=== PATIENT | male | born 1960 | race Hispanic/Latino ===

== ENCOUNTER → 2024-10-09 | Outpatient (CLI) | payer MEDICARE ==
[2024-10-09 13:18] LABS: CREATININE 1.2 mg/dL (0.5-1.3)
== END | disposition home or self-care (01) ==
LOC: LAB 12:11
PROVIDERS: ATTEND Otolaryngology Plastic Surgery within the Head & Neck
DX: H90.3 Sensorineural hearing loss, bilateral (principal)
CPT/HCPCS: 36415; 82565; 84520

== ENCOUNTER → 2024-10-14 | Outpatient (CLI) | payer MEDICARE ==
[~2024-10-14] MED LIST: GADOTERATE MEGLUMINE 10 MMOL/20 ML VIAL IV ONE
--- NOTE | 2024-10-14 10:32 | HMCIMG ---
Exam Type: MRI OF THE BRAIN AND INTERNAL ACOUSTIC CANALS WITHOUT GADOLINIUM Clinical Information: BILAT HEARING LOSS Comparison: None TECHNIQUE: The examination is done with diffusion sequences, FLAIR axial sequence, axial and sagittal T1, axial and coronal [id number] T2 sequences, and apparent diffusion sequence. Axial and coronal ADC MAP sequences done for evaluation of the internal acoustic canals. FINDINGS: CSF spaces are preserved. Ventricular spaces are preserved as well. There are several foci of high signal intensity throughout the periventricular white matter consistent with chronic small vessel ischemia. No similar-appearing focus present within the deep white matter of the cerebellum or brainstem. No acute intra-or extra-axial fluid collections are seen. There is no mass effect or shift of midline structures. Diffusion-weighted sequences demonstrate no evidence of acute pathology. Specifically, there is no evidence of acute TIA or stroke. The pituitary gland is unremarkable. The stalk is midline and the sella turcica shows no significant abnormalities. The signal intensity of the skull base and the marrow of the actual bony structures of the skull are unremarkable. The acoustic canals show no significant abnormalities. The orbits and the eye globes are preserved. The paranasal sinuses are clear. The internal acoustic canal examination is unremarkable bilaterally. Vestibulocochlear nerve and facial nerves are intact and the is no evidence of inflammatory change in the mastoids. The semicircular canals are intact. After contrast administration, there is no abnormal enhancement. IMPRESSION: 1. CHRONIC SMALL VESSEL ISCHEMIC CHANGE. NO ACUTE INFARCTS OR ISCHEMIC EVENTS NOTED AT THIS TIME. 2. Normal internal acoustic canal exam.
== END | disposition home or self-care (01) ==
LOC: RAH 09:03
PROVIDERS: ATTEND Otolaryngology Plastic Surgery within the Head & Neck
DX: I67.82 Cerebral ischemia (principal); H90.3 Sensorineural hearing loss, bilateral
CPT/HCPCS: 70553; A9575

== ENCOUNTER → 2024-10-28 | Outpatient (CLI) | payer MEDICARE, MEDICAID ==
--- NOTE | 2024-10-28 15:08 | HMCIMG ---
CT MAXILLOFACIAL W/O CONTRAST HISTORY: Sinusitis COMPARISON: None TECHNIQUE: Multiple sequential high-resolution axial images of the paranasal sinuses were obtained. Postprocessing sagittal and coronal reconstruction images were also obtained. Patient was not given contrast through intravenous route. FINDINGS: Nasal septum is mildly deviated towards left. There is nasal polyposis. There is mucoperiosteal thickening involving the bilateral ethmoid and maxillary sinuses left worse than right. Narrowing of the left infundibulum is seen. No acute displaced fracture is seen. There is no evidence of air-fluid level in the paranasal sinuses. Parapharyngeal fat planes are preserved bilaterally. IMPRESSION: 1. No acute displaced fracture is seen. Bilateral ethmoid and maxillary sinusitis with left worse than right. CT was performed with one or more following dose reduction techniques: automated exposure control, adjustment of the mA and kv according to patient's size, or use of a iterative reconstruction technique.
== END | disposition home or self-care (01) ==
LOC: RAH 13:46
PROVIDERS: ATTEND Otolaryngology Plastic Surgery within the Head & Neck
DX: J32.0 Chronic maxillary sinusitis (principal); J32.2 Chronic ethmoidal sinusitis; J34.2 Deviated nasal septum; J33.9 Nasal polyp, unspecified; J34.89 Other specified disorders of nose and nasal sinuses
CPT/HCPCS: 70486